=== PATIENT | female | born 1960 | race Caucasian/White ===

== ENCOUNTER 2025-02-07 14:04 | Emergency (ER) | payer OTHER, SELFPAY ==
[2025-02-07 14:17] VITALS: BP 150/74
[2025-02-07 17:07] LABS: Hematocrit 43.6 % (37.0-47.0); Hemoglobin 14.3 g/dL (12.0-16.0); Mean Corp Hgb Conc. 32.8 g/dL (33.0-37.0); Mean Corpuscular Volume 89.9 fL (81.0-99.0); Nucleated Red Blood Cells % 0 %; Platelet Count 205 10^3/uL (130-400); Red Cell Dist. Width 14.5 % (11.5-14.5)
[2025-02-07 17:10] LABS: Blood Urea Nitrogen 15 mg/dl (7-17); Calcium 9.9 mg/dl (8.4-10.2); Carbon Dioxide 24 mmol/L (22-30); Chloride 107 mmol/L (98-107); Glucose 96 mg/dl (70-99); Potassium 4.2 mmol/L (3.5-5.1); Sodium 142 mmol/L (135-145); eGFR 50.55
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
[2025-02-07 18:15] LABS: Urine Character Slightly Cloudy (Clear)
[2025-02-07 18:59] LABS: Urine Squamous Cell >30 /LPF (Few)
[2025-02-07 19:00] LABS: Urine White Cell 16-20 /HPF (0-5)
[2025-02-07 23:18] VITALS: BP 156/85
[2025-02-07 23:20] VITALS: BP 156/85
--- NOTE | 2025-02-08 11:36 | EDCM ---
Attempted to reach pt to follow up on overnight ED visit, left voicemail requesting a call back. Also updated case management specialist from [facility] who came to ED looking for the pt.
== END 2025-02-07 23:56 | disposition home or self-care (01) ==
LOC: EMR 14:04
PROVIDERS: EMERGENCY PHYSICIAN Emergency Medicine; FAMILY PHYSICIAN Internal Medicine
DX: F32.A Depression, unspecified (principal); D72.829 Elevated white blood cell count, unspecified; F20.9 Schizophrenia, unspecified
CPT/HCPCS: 99283; 80048; 80306; 81003; 81015; 82077; 85025